=== PATIENT | female | born 1945 | race Caucasian/White ===

== ENCOUNTER → 2016-12-15 | Outpatient (CLI) | payer MEDICARE, BC ==
--- NOTE | 2016-12-15 16:14 | DI ---
Indication: ITS.REASON: M54.5 LOW BACK PAIN PROCEDURE: MRI LUMBAR SPINE W/O CONTRAST: Encounter: Initial Comparison: None Technique: Multiplanar multisequence MR imaging of the lumbar spine was performed without contrast. Findings: There is transitional anatomy. Spine is labeled with the iliolumbar ligaments arising from the L5 vertebra. This yields a disk at the S1-S2 level. There is dextroscoliosis present. No acute fracture. Prominent hemangioma within the L2 and L3 vertebra. Conus medullaris terminates normally at L1. Paraspinal soft tissues are unremarkable. Segmental analysis: L1-L2: No focal disk herniation or central canal stenosis. No neural foraminal stenosis. L2-L3: Disk height loss with small annular disk protrusion contributing to mild central canal narrowing. Degenerative facet disease with mild left neural foraminal stenosis. No significant right foraminal narrowing. L3-L4: Small annular bulge with superimposed left lateral protrusion and degenerative facet disease contributing to mild canal stenosis. There is narrowing of the left lateral recess and moderate to severe left neural foraminal stenosis. Mild right neural foraminal narrowing. L4-L5: Mild degenerative facet disease without central disk protrusion. There is moderate central canal stenosis due to the facet hypertrophy. Moderate bilateral neural foraminal stenosis. L5-S1: Degenerative facet hypertrophy without focal disk herniation. Moderate central canal stenosis. Mild bilateral neural foraminal stenosis. S1-S2: No focal disk herniation or central canal stenosis. Mild degenerative facet disease without neural foraminal stenosis. Impression: Scoliosis with degenerative disk and facet disease as above. .
== END ==
LOC: IMA 13:20
PROVIDERS: ATTEND Family Medicine
DX: M41.9 Scoliosis, unspecified (principal); M47.896 Other spondylosis, lumbar region; M47.898 Other spondylosis, sacral and sacrococcygeal region; M48.06 Spinal stenosis, lumbar region; M48.07 Spinal stenosis, lumbosacral region; M51.36 Other intervertebral disc degeneration, lumbar region; M54.5 Low back pain

== ENCOUNTER → 2016-12-20 | Outpatient (CLI) | payer MEDICARE, BC | LOC: WC.BC 07:58 | DX: Z12.31 Encounter for screening mammogram for malignant neoplasm of breast (principal) | CPT/HCPCS: 77063; G0202 ==